=== PATIENT | female | born 1945 | race Caucasian/White ===

== ENCOUNTER 2024-08-11 10:54 | Outpatient (CLI) | payer MEDICARE ==
--- NOTE | 2024-08-11 13:16 | RADIOLOGY REPORT ---
CLINICAL HISTORY: ABNORMAL LUNG SOUNDS TECHNIQUE: CT of the chest was performed without intravenous contrast. This exam was performed accord ing to our departmental dose optimization program. Up-to-date CT equipment and radiation dose reducti on techniques are utilized as appropriate. COMPARISON: None FINDINGS: Lower Neck: Unremarkable Axilla, Mediastinum and Pat: Unremarkable. Heart and Great Vessels: Normal-sized heart without pericardial effusion. The thoracic aorta is norm al in caliber with mild calcified atherosclerotic plaque. Mild aortic valve calcifications. 3-vessel coronary artery calcifications Up to moderate in the left anterior descending coronary artery and rig ht coronary artery. Central pulmonary arteries are normal caliber. Airway, Lungs and Pleura: Trachea and central airways are patent. There is mild bronchial wall thick ening. There is moderate centrilobular emphysema. No airspace consolidation, pleural effusion, or pne umothorax. Scattered linear areas of atelectasis or scarring bilaterally. Upper Abdomen: Small hypodensity in the right lobe of the liver segment 7/8 adjacent to the IVC measu ring 1.2 cm on series 2, image 73, not optimally evaluated without contrast Chest Wall and Osseous Structures: Mild multilevel thoracic spondylosis. No destructive osseous lesio n. IMPRESSION: 1. Moderate emphysema. 2. No pneumonia or acute abnormality. 3. There is 3-vessel calcified coronary artery disease up to moderate in the left anterior descending and right coronary arteries. Radiation optimization: All CT scans at this facility use at least one of these dose optimization regina hniques: automated exposure control mA and/or kV adjustment per patient size (includes targeted exam s where dose is matched to clinical indication) or iterative reconstruction.
== END 2024-08-11 23:59 | disposition home or self-care (01) ==
LOC: RAD 10:54
PROVIDERS: ATTEND Physician Assistant
DX: J43.2 Centrilobular emphysema (principal); R09.89 Other specified symptoms and signs involving the circulatory and respiratory systems; I25.10 Atherosclerotic heart disease of native coronary artery without angina pectoris; I35.8 Other nonrheumatic aortic valve disorders
CPT/HCPCS: 71250

== ENCOUNTER 2024-10-25 09:39 | Day surgery (SDC) | payer MEDICARE ==
[2024-10-25] VITALS (11 sets, daily range): BP systolic 116–153; BP diastolic 59–83; PULSE 55–62; RESP 16–19; TEMP 97.5; O2SAT 92–96
[~2024-10-25] VITALS: Ht 170.2 cm; Wt 99.0 kg
--- NOTE | 2024-10-25 10:12 | RADIOLOGY REPORT ---
EXAM: DI CHEST,TWO VIEWS HISTORY: PRE OP HEART CATH COMPARISON: Chest CT dated 08/11/2024. TECHNIQUE: Frontal and lateral views of the chest were performed. FINDINGS: No pneumothorax, pulmonary edema, pleural effusions, or consolidative infiltrates. The lungs are hype rexpanded. Emphysematous changes are better characterized on prior CT scan. The heart is not enlarge d. The thoracic aorta is calcific. No fractures are identified about the bony thorax. There is modera te thoracic degenerative disc disease. IMPRESSION: Emphysema without evidence of acute intrathoracic process.
--- NOTE | 2024-10-25 10:19 | ELECTROCARDIOGRAPH REPORT ---
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 RUEL Johnston Measurements Intervals [place] Rate: 63 P: 90 NV: 175 QRS: 78 QRSD: 108 T: 71 QT: 404 QTc: 414 Interpretive Statements Sinus rhythm Electronically Signed On 10-25-2024 17:26:[address] RUEL Johnston Please click the below link to view image of tracing.
[2024-10-25 10:56] LABS: MEAN PLATELET VOLUME 8.8 FL (7.4-10.4); RED CELL DISTRIBUTION WIDTH 15.1 % (11.5-14.5)
[2024-10-25 11:11] LABS: APTT 26 SECONDS (22-32); INR 1.1 INR
[2024-10-25 11:23] LABS: CREATININE 1.17 MG/DL (0.40-0.90); PRO BRAIN NATRIURETIC PEPTIDE 97 PG/ML (0-450); TOTAL CARBON DIOXIDE 28.1 MMOL/L (24-32); eCRCL 39 ML/MIN; eGFR 45 ML/MIN
[2024-10-25] MEDS ORDERED: ALBU90AE IH (11:42)
[2024-10-25] MEDS ORDERED: ALBU2.5V13 NEB (11:42)
[2024-10-25] MEDS ORDERED: METO100T14 PO (11:42)
[2024-10-25] MEDS ORDERED: SIMV-42 PO (11:42)
[2024-10-25] MEDS ORDERED: AMLO10TA13 PO (11:42)
[2024-10-25] MEDS ORDERED: LOSA1TAB39 PO (11:42)
[2024-10-25] MEDS ORDERED: LEVO88TA7 PO (11:42)
[2024-10-25] MEDS ORDERED: BUDE10.7 INH (11:42)
[2024-10-25] MEDS ORDERED: ASPI81TA52 PO (11:42)
[2024-10-25] MEDS ORDERED: midazolam 1 mg/ML 2ml injection ONE (11:47)
[2024-10-25] MEDS ORDERED: fentaNYL/PF 50MCG/1 ML 2ML syringe ONE (11:47)
[2024-10-25] MEDS ORDERED: LIDOcaine 1% 30ml preserv. free vial ONE (11:47)
[2024-10-25] MEDS ORDERED: iohexol 350 MG/ML 50ML vial IV ONE (11:47)
[2024-10-25] MEDS ORDERED: HYDROcodone/acetaminophen 5mg/325mg tablet PO PRN (13:40)
[2024-10-25] MEDS ORDERED: ondansetron/PF 4mg/2ml inj IV PRN (13:40)
[2024-10-25] MEDS ORDERED: OXAZEpam 15mg capsule PO PRN (13:40)
[2024-10-25] MEDS ORDERED: HYDROcodone/acetaminophen 10/325mg tab PO PRN (13:40)
[2024-10-25] MEDS ORDERED: normal saline 1000ml 1,000 ML IV SCH (13:40)
--- NOTE | 2024-10-26 04:08 | CARDIOLOGY REPORT ---
DATE OF SERVICE: 10/25/2024 DICTATING PHYSICIAN: Saurabh Garnica MD PROCEDURES: * Left heart catheterization. * Left ventriculography. * Selective left and right coronary arteriography. * Conscious sedation administration 30 minutes. * Right iliofemoral arteriogram. * Angio-Seal application. BRIEF HISTORY AND INDICATION: A 78-year-old female has class 3 dyspnea on exertion, chest pressure, tightness. CT showed three-vessel calcific coronary artery disease. She had a Lexiscan with fixed anterior wall defect, which may be from large breasts or old fixed defect with triple vessel disease. She has known emphysema. Risks, benefits, alternatives of diagnostic heart catheterization were discussed with her and she has decided to proceed. Risks included but not restricted to , stroke, myocardial infarction, renal failure, neurologic or vascular complication, bleeding complication, allergic reaction. TECHNIQUE: Following usual sterile preparation and draping, the right groin was infiltrated with 10 mL of 1% lidocaine local anesthetic. Using single wall puncture technique, J-tip guidewire lead, 6-Syriac sheath was introduced in the right femoral artery. Conscious sedation was achieved with 2 mg Versed and 100 mcg fentanyl. Selective left and right coronary arteriography, left ventriculography in right anterior oblique projection were performed with 6-Syriac femoral left 4, right 4 Yasemin shaped catheters and straight pigtail catheter. Catheter exchanges were under fluoroscopic guidance with J-tip guidewire lead. At termination, right iliofemoral arteriogram was performed. 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 Hemostasis was obtained. There were no complications. An 80 mL of Omnipaque 350 contrast was administered. Fluoroscopy time was 2.9 minutes. Radiation exposure 3122 cGy per cm2. FINDINGS: A 5 feet 7 inches, 218 pounds, 78-year-old female, AO. 119/55, LV 119/1-10. LEFT VENTRICULOGRAM: Ejection fraction 70%. Normal wall motion and mitral valve prolapse. No mitral regurgitation. Right iliofemoral artery is smooth. Left main coronary artery provides the left anterior descending, a twig-like intermediate, a large proximal diagonal intermediate distribution in the left circumflex. Left main coronary artery has 10% narrowing. There is 2-cm length, 40% calcific proximal to mid left anterior descending narrowing. Anterior descending grafts found on the apex of the myocardium. Left circumflex shows proximal 20% narrowing. First obtuse marginal has 20% proximal narrowing. There is a posterolateral branch. Right coronary artery has a 2-cm length calcific 40% mid narrowing. Posterior descending and posterolateral reached the apex of the myocardium. RESULTS: * Normal left ventriculogram, ejection fraction of 70%. * Mitral valve prolapse, no mitral regurgitation. * A 10% left main coronary artery narrowing. * A 40% 2 cm in length proximal to mid calcific left anterior descending narrowing. * A 20% left circumflex, 20% first obtuse marginal narrowing. * A 2 cm in length calcific 40% mid right coronary artery narrowing. COMMENT: The patient has fixed anterior defect on nuclear stress testing due to breast artifact. She has [id number] calcific coronary artery disease. Shortness of breath is due to emphysema and obesity. She is recommended for continued risk factor intervention and medical therapy. Saurabh Garnica MD TID: [id number] RECEIPT: [id number] TR/JOSELITO
== END 2024-10-25 18:45 | disposition home or self-care (01) ==
LOC: SSTAY O 09:39
PROVIDERS: ATTEND Internal Medicine Cardiovascular Disease
DX: I25.10 Atherosclerotic heart disease of native coronary artery without angina pectoris (principal); I34.1 Nonrheumatic mitral (valve) prolapse; Z91.040 Latex allergy status; Z88.8 Allergy status to other drugs, medicaments and biological substances
CPT/HCPCS: 36415; 71046; 80048; 83880; 84484; 85025; 85610; 85730; 93005; 93458; 99152; 99153; C1760; J1644; J2003; J2250; J3010; J7030; Q0163; Q9967; A6258